=== PATIENT | female | born 1950 | race Caucasian/White ===

== ENCOUNTER → 2016-04-14 | Outpatient (CLI) | payer MEDICARE, OTHER ==
--- NOTE | 2016-04-15 11:12 | RAD ---
DATE: 04/14/16 EXAM: DIGITAL SCREEN BILAT W/CAD HISTORY: Routine screening COMPARISON: 04/12/15 This study was interpreted with the benefit of Computerized Aided Detection (CAD ). TECHNIQUE: Routine CC and MLO views of both breasts are obtained. FINDINGS: The breast tissue density is [B, scattered fibroglandular densities are seen bilaterally ] . Stable benign-appearing calcifications are present in both breasts.. There are no dominant suspicious masses, suspicious microcalcifications or evidence of architectural distortion. Skin and nipples are intact IMPRESSION: Benign findings BI-RADS CATEGORY: 2 BENIGN FINDING(S) RECOMMENDED FOLLOW-UP: One year PQRS compliance statement: Patient information was entered into a reminder system with a target due date for the next mammogram. Mammography is a sensitive method for finding small breast cancers, but it does not detect them all and is not a substitute for careful clinical examination. A negative mammogram does not negate a clinically suspicious finding and should not result in delay in biopsying a clinically suspicious abnormality. "Our facility is accredited by the [employer] Mammography Program." AMANDAD
== END | disposition home or self-care (01) ==
LOC: MAMMO 08:04
PROVIDERS: ATTEND Obstetrics & Gynecology
DX: Z12.31 Encounter for screening mammogram for malignant neoplasm of breast (principal)
CPT/HCPCS: G0202; 77067

== ENCOUNTER → 2017-04-16 | Outpatient (CLI) | payer BC | END | disposition home or self-care (01) | LOC: MAMMO 14:44 | DX: Z12.31 Encounter for screening mammogram for malignant neoplasm of breast (principal) | CPT/HCPCS: 77063; 77067 ==

== ENCOUNTER → 2018-04-28 | Outpatient (CLI) | payer BC ==
--- NOTE | 2018-04-28 10:11 | RAD ---
DATE: 04/28/2018 EXAM: MAMMO MARLI SCREENING BILATERAL HISTORY: Routine screening COMPARISON: 04/16/2017 This study was interpreted with the benefit of Computerized Aided Detection (CAD). Breast Density: SCATTERED The breast parenchyma shows scattered fibroglandular densities. Breast parenchyma level B. FINDINGS: 2-D and 3-D tomosynthesis imaging was performed in CC and MLO projections. No new or enlarging breast densities are seen. There are scattered benign type calcifications. No suspicious microcalcifications have developed. IMPRESSION: Stable mammograms without evidence of malignancy. BI-RADS CATEGORY: 2 BENIGN FINDING(S) RECOMMENDED FOLLOW-UP: 12M 12 MONTH FOLLOW-UP PQRS compliance statement: Patient information was entered into a reminder system with a target due date for the next mammogram. Mammography is a sensitive method for finding small breast cancers, but it does not detect them all and is not a substitute for careful clinical examination. A negative mammogram does not negate a clinically suspicious finding and should not result in delay in biopsying a clinically suspicious abnormality. "Our facility is accredited by the [employer] Mammography Program."
== END | disposition home or self-care (01) ==
LOC: MAMMO 08:42
PROVIDERS: ATTEND Obstetrics & Gynecology
DX: Z12.31 Encounter for screening mammogram for malignant neoplasm of breast (principal)
CPT/HCPCS: 77063; 77067

== ENCOUNTER → 2019-03-24 | Outpatient (CLI) | payer MEDICARE ==
[~2019-03-24] MED LIST: REGADENOSON 0.4 MG/5 ML DISP.SYRIN. IV ONE
--- NOTE | 2019-03-24 11:47 | RAD ---
MR#: [id number] Date of Study: 03/24/2019 Ordering Physician: DAMIEN HURTADO, Referring Physician: VERNA GRANDA Tech: JADEN Melvin, KASHIF (R) (N) APPROVED REPORT Test Type: Pharmacological Stress Nurse/Tech: Anna Torres RN Test Indications: Dyspnea Cardiac History: HTN, See EMR. Medications: ASA 81mg QD, See EMR. Medical History: See EMR. Resting ECG: SR with prolonged HI interval Resting Heart Rate: 70 bpm Resting Blood Pressure: 118/76mmHg Pretest Chest Pain: No chest pain Nurse/Tech Notes Lungs CTA, Heart tones regular. Consent: The procedure was explained to the patient in lay terms. Informed consent was witnessed. Nate eout was entered into [employer]. History and Stress Test performed by RT Rm (R) (N) Pharm. Details Pharmacologic stress testing was performed using 0.4mg per 5ml of regadenoson given intravenously ove r 7-10 seconds. Stress Symptoms Dyspnea POST EXERCISE Reason for Termination: Infusion complete Max HR: 92 bpm Max Blood Pressure: 109/57mmHg Blood Pressure response to exercise: Normal blood pressure response during stress. Heart Rate response to exercise: WNL Chest Pain: No. Arrhythmia: No. ST Change: No. INTERPRETATION Stress EKG Conclusion: Baseline EKG showed sinus rhythm. No ischemic changes at peak stress. No arr hythmias. Imaging Protocol IMAGE PROTOCOL: Rest Tc-99m/stress Tc-99m 1 day Rest: Stress: Viability: Radiopharm.Tc99m WwdxvvkfjKi79d Sestamibi Akpg25gKp 33mCi Img Date 03/24/2019 03/24/2019 Inj-Img [id number]. 60min. Rest Admin Site:IV - Right AntecubitalAdministrator:JADEN Melvin, KASHIF (R)(N) Stress Admin Site: IV - Right AntecubitalAdministrator: RT Adriana Abdalla)(N) STRESS DATA End Diast. Vol.83.0mlLVEDV index BSA38.0ml End Syst. Vol.19.0mlLVESV index BSA9.0ml Myocardial Pssp429.0gEject. Hwpmzwdm91.0% Stress Scores Regional WT0.00Summed WT7.00 Regional WM0.00Summed WM1.00 Study quality was good. Left Ventricular size was Normal at Rest and Stress. Lung uptake was . Left Ventricular ejection fraction is 74%. The rest and stress images show normal perfusion, normal contraction and thickening. LV Perf. Quant 17 Seg. SSS0.00 17 Seg. SRS0.00 17 Seg. SDS0.00 Stress Defect Extent (% LAD)0.00Rest Defect Extent (% LAD)0.00Rev. Defect Extent (% LAD)0.00 Stress Defect Extent (% LCX) 0.00Rest Defect Extent (% LCX)0.00Rev. Defect Extent (% LCX)0.00 Stress Defect Extent (% RCA)0.00Rest Defect Extent (% RCA)0.00Rev. Defect Extent (% RCA)0.00 Stress Defect Extent (% MILES)0.00Rest Defect Extent (% MILES)0.00Rev. Defect Extent (% MILES)0.00 Conclusion 1. Regadenoson cardioisotope stress test did not show any evidence of ischemia or infarct. 2. Normal left ventricular systolic function with ejection fraction calculated at 74%. 3. Low risk for cardiac events. Signed by : Chris Ray, Electronically Approved : 03/24/2019 11:46:30
== END | disposition home or self-care (01) ==
LOC: NM 07:10
PROVIDERS: ATTEND Family Medicine
DX: R06.09 Other forms of dyspnea (principal); I10 Essential (primary) hypertension
CPT/HCPCS: 78452; 93017; A9500; J2785

== ENCOUNTER → 2019-07-27 | Outpatient (CLI) | payer MEDICARE ==
--- NOTE | 2019-07-27 13:14 | RAD ---
BILATERAL SCREENING MAMMOGRAM, 3-D History: Routine screening. Comparison: 04/28/2018, 04/16/2017, 04/14/2016, 04/12/2015. Technique: MLO and CC digital tomosynthesis (3D) images obtained. Radiologist reviewed these images on dedicated workstation. Findings: Breast Tissue Density B : There are scattered areas of fibroglandular density. There are no dominant masses, suspicious microcalcifications, or architectural distortion. Scattered calcifications are stable. IMPRESSION: No mammographic evidence of malignancy. Recommend routine screening. BI-RADS category 1: Negative. The images were reviewed with computer-aided detection. Patient information is entered into reminder system with a target due date for the next screening mammogram. Mammography is the most sensitive method for finding small breast cancers, but it does not detect them all and is not a substitute for careful clinical examination. A negative mammogram does not negate a clinically suspicious finding and should not result in delay in biopsying a clinically suspicious abnormality. "Our facility is accredited by the [employer] Mammography Program." Electronically signed by: Tim Pink MD (07/27/2019 1:11 PM) [id number]
== END | disposition home or self-care (01) ==
LOC: MAMMO 07:51
PROVIDERS: ATTEND Obstetrics & Gynecology
DX: Z12.31 Encounter for screening mammogram for malignant neoplasm of breast (principal)
CPT/HCPCS: 77063; 77067

== ENCOUNTER → 2020-07-30 | Outpatient (CLI) | payer MEDICARE ==
--- NOTE | 2020-07-30 13:06 | RAD ---
PROCEDURE: MG BILAT SCREEN+MARLI HISTORY: The patient is 70 years old and is seen for Reason: / Spl. Instructions: / History: . COMPARISON: July 27, 2019 TECHNIQUE: CC and MLO views of both breasts were obtained. Images were processed by the [employer] computer-aided detection system. DENSITY: There are scattered fibroglandular densities. FINDINGS: No developing mass, suspicious calcifications or architectural distortion. Bilateral clarence ign-appearing calcific effusions, unchanged. IMPRESSION: Negative. No evidence of malignancy. Recommend annual screening mammograms per [employer] guidelines. She will be due in one year. BI-RADS category 2 Benign Patient entered into a reminder system for annual screening mammogram. Electronically signed by: Osmar Blanchard DO (07/30/2020 1:03 PM) [email or web address]
== END ==
LOC: MAMMO 11:02
PROVIDERS: ATTEND Obstetrics & Gynecology
DX: Z12.31 Encounter for screening mammogram for malignant neoplasm of breast (principal)
CPT/HCPCS: 77063; 77067

== ENCOUNTER 2020-11-06 10:12 | Observation (INO) | payer MEDICARE ==
[~2020-11-06] VITALS: Ht 180.3 cm; Wt 90.9 kg
--- NOTE | 2020-11-06 10:23 | PHYS DOC ---
Past Medical History Past Medical History: Depression, Hypertension General Adult HPI: HPI: Patient is a 70 year old female with history of HTN, depression who presents with a near syncopal episode. Was volunteering at her [employer] and was going up and down stairs when she began to feel lightheaded and fell over. She does not think that she ever fully lost consciousness. Denies any injuries from her fall. She was extremely tired and felt like she may pass out while she was on the ground. EMS arrived and stated their first blood pressure was 66/40s while she was sitting upright. They lowered her to the ground and repeat blood pressures were 115 systolic minutes later. She denies any preceding chest pain or pressure, palpitations, or shortness of breath. Has been feeling in her usual state of health. She donated platelets yesterday. She recently started venlafaxine for depression. Her only other prescription medication is valsartan/hydrochlorothiazide for HTN. Denies any history of CAD, CHF, arrhythmia. States she had a stress test last year that was reportedly reassuring. Review of Systems: Review of Systems: Constitutional: Denies fever or chills. [] Eyes: Denies change in visual acuity. [] HENT: Denies nasal congestion or sore throat. [] Respiratory: Denies cough or shortness of breath. [] Cardiovascular: Denies chest pain or edema. [] GI: Denies abdominal pain, nausea, vomiting, bloody stools or diarrhea. [] : Denies dysuria. [] Musculoskeletal: Denies back pain or joint pain. [] Integument: Denies rash. [] Neurologic: Near syncope/lightheadedness. Denies headache, focal weakness or sensory changes. [] Endocrine: Denies polyuria or polydipsia. [] Lymphatic: Denies swollen glands. [] Psychiatric: Denies depression or anxiety. [] Heart Score: C/O Chest Pain: No Risk Factors: Risk Factors: DM, Current or recent (<one month) smoker, HTN, HLP, family history of CAD, obesity. Risk Scores: Score 0 - 3: 2.5% MACE over next 6 weeks - Discharge Home Score 4 - 6: 20.3% MACE over next 6 weeks - Admit for Clinical Observation Score 7 - 10: 72.7% MACE over next 6 weeks - Early Invasive Strategies Allergies: Allergies: Allergies Coded Allergies Type Severity Reaction Last Updated Verified No Known Drug Allergies 03/24/19 No Physical Exam: PE: Constitutional: Well developed, well nourished, no acute distress, non-toxic appearance. [] HENT: Normocephalic, atraumatic, bilateral external ears normal, oropharynx moist, no oral exudates, nose normal. [] Eyes: PERRLA, EOMI, conjunctiva normal, no discharge. [] Neck: Normal range of motion, no tenderness, supple, no stridor. [] Cardiovascular:Heart rate regular rhythm, no murmur [] Lungs & Thorax: Bilateral breath sounds clear to auscultation [] Abdomen: Bowel sounds normal, soft, no tenderness, no masses, no pulsatile masses. [] Skin: abarsion on left elbow. Warm, dry, no erythema, no rash. [] Back: No tenderness, no CVA tenderness. [] Extremities: No tenderness, no cyanosis, no clubbing, ROM intact, no edema. [] Neurologic: Alert and oriented X 3, normal motor function, normal sensory function, no focal deficits noted. [] Psychologic: Affect normal, judgement normal, mood normal. [] EKG: EKG: Sinus rhythm. Rate 79. First-degree AV block, NC 232. Left bundle branch pattern. QRS 128. QTc 455. No acute ST segment changes. [] Radiology/Procedures: Radiology/Procedures: [] Course & Med Decision Making: Course & Med Decision Making Pertinent Labs and Imaging studies reviewed. (See chart for details) Patient is 70-year-old female with history HTN, depression who presents with a near syncopal episode during exertion today. Reportedly hypotensive at the scene, but normotensive with normal vitals here. Well-appearing on arrival. EKG was sinus rhythm with a left bundle branch block and a first-degree AV block, both of which are reportedly new per patient. We will check electrolytes, cell counts, troponin. Given exertional syncope and a bifascicular block feel she would be best served by admission for potential cardiac syncope. 1022 Mild hypokalemia on work-up. Unlikely contributory. P.o. replacement ordered. Echocardiogram and cardiology consultation placed. Will be admitted to the patient's PCP, Dr. Welch. 1227 Deepika Disclaimer: Deepika Disclaimer: This electronic medical record was generated, in whole or in part, using a voice recognition dictation system. Departure Departure Impression: Primary Impression: Syncope Disposition: ADMITTED INPATIENT Admitting Physician: Laron Welch Condition: STABLE Referrals: LARON WELCH MD (PCP) ALAINA HUBBARD MD Nov 06, 2020 10:23
[2020-11-06 10:38] LABS: BASO % 1 % (0-3); EOS # 0.1 x10^3/uL (0.0-0.7); EOS % 3 % (0-3); HEMATOCRIT 39.5 % (36.0-47.0); HEMOGLOBIN 13.9 g/dL (12.0-15.5); LYMPH # 1.2 x10^3/uL (1.0-4.8); LYMPH % 34 % (24-48); MEAN CORPUSCULAR HEMOGLOBIN 32 pg (25-35); MEAN CORPUSCULAR HGB CONC 35 g/dL (31-37); MEAN CORPUSCULAR VOLUME 90 fL (79-100); MONO # 0.3 x10^3/uL (0.0-1.1); MONO % 10 % (0-9); NEUT # 1.8 x10^3/uL (1.8-7.7); NEUT % 52 % (31-73); PLATELET COUNT 124 x10^3/uL (140-400); RED CELL DISTRIBUTION WIDTH 12.9 % (11.5-14.5); WHITE BLOOD COUNT 3.5 x10^3/uL (4.0-11.0)
[2020-11-06 10:50] LABS: CALCIUM 9.2 mg/dL (8.5-10.1); CREATININE 1.1 mg/dL (0.6-1.0); MAGNESIUM 1.9 mg/dL (1.8-2.4)
[2020-11-06] MEDS ORDERED: POTASSIUM CHLORIDE 20 MEQ TABLET.ER. PO ONE ×2 (11:15→16:45)
--- NOTE | 2020-11-06 12:35 | PDOC2 ---
UZMA CANTU DOPE HEATER 11/06/20 1235: CARDIAC CONSULT DATE OF CONSULT Date of Consult DATE: 11/06/20 TIME: 12:27 REASON FOR CONSULT Reason for Consult: near syncope REFERRING PHYSICIAN Referring Physician: Dr. Herrera SOURCE Source: Chart review, Patient HISTORY OF PRESENT ILLNESS HISTORY OF PRESENT ILLNESS This is a 70 yo female who presented secondary to near syncopal episode. Reports she was going up and down stairs at her [employer] and began to feel lightheaded and fell over. Could have lost consciousness, but she is unsure. Did feel tired and as though she could pass out on the ground. EMS was called. Blood pressure 66/40s while sitting upright. Does have a history of hypertension for which she takes valsartan/hydrochlorothiazide. Also donated platelets yesterday. Has been following [employer]. Has lost 14lbs in 5 weeks. She denies any recent dizziness, diaphoresis, palpitations, or chest pain. Was started on medication for depression recently. No prior h/o CAD or arrhythmias. PAST MEDICAL HISTORY Cardiovascular: HTN Psych: Depression PAST SURGICAL HISTORY Past Surgical History: No pertinent history FAMILY HISTORY Family History: Heart Disease SOCIAL HISTORY Smoke: No ALCOHOL: none Drugs: None CURRENT MEDICATIONS CURRENT MEDICATIONS Current Medications Medications (Trade) Dose Ordered Sig/Trish Route PRN Reason Start Time Stop Time Status Last Admin Dose Admin Potassium Chloride (Klor-Con) 40 meq 1X ONCE PO 11/06/20 11:15 11/06/20 11:16 DC 11/06/20 11:32 ALLERGIES ALLERGIES: Coded Allergies: No Known Drug Allergies (Unverified , 03/24/19) ROS Review of System 14 point ROS conducted with pertinent positives noted above in HPI PHYSICAL EXAM General: Alert, Oriented X3, Cooperative, No acute distress HEENT: Atraumatic Lungs: Clear to auscultation, Normal air movement Heart: Regular rate Abdomen: Soft, No tenderness Extremities: No edema, Normal pulses Skin: No significant lesion Neuro: Normal gait, Sensation intact Psych/Mental Status: Mental status NL, Mood NL MUSCULOSKELETAL: Osteoarthritic changes both hands VITALS/I&O VITALS/I&O: Vital Signs Date Time Temp Pulse Resp B/P (MAP) Pulse Ox O2 Delivery O2 Flow Rate FiO2 11/06/20 10:12 98.4 83 18 131/70 (90) 96 Room Air 98.4 LABS Lab: Laboratory Tests Test 11/06/20 10:29 White Blood Count 3.5 x10^3/uL (4.0-11.0) L Red Blood Count 4.40 x10^6/uL (3.50-5.40) Hemoglobin 13.9 g/dL (12.0-15.5) Hematocrit 39.5 % (36.0-47.0) Mean Corpuscular Volume 90 fL (79-100) Mean Corpuscular Hemoglobin 32 pg (25-35) Mean Corpuscular Hemoglobin Concent 35 g/dL (31-37) Red Cell Distribution Width 12.9 % (11.5-14.5) Platelet Count 124 x10^3/uL (140-400) L Neutrophils (%) (Auto) 52 % (31-73) Lymphocytes (%) (Auto) 34 % (24-48) Monocytes (%) (Auto) 10 % (0-9) H Eosinophils (%) (Auto) 3 % (0-3) Basophils (%) (Auto) 1 % (0-3) Neutrophils # (Auto) 1.8 x10^3/uL (1.8-7.7) Lymphocytes # (Auto) 1.2 x10^3/uL (1.0-4.8) Monocytes # (Auto) 0.3 x10^3/uL (0.0-1.1) Eosinophils # (Auto) 0.1 x10^3/uL (0.0-0.7) Basophils # (Auto) 0.0 x10^3/uL (0.0-0.2) Sodium Level 134 mmol/L (136-145) L Potassium Level 3.0 mmol/L (3.5-5.1) L Chloride Level 95 mmol/L (98-107) L Carbon Dioxide Level 30 mmol/L (21-32) Anion Gap 9 (6-14) Blood Urea Nitrogen 12 mg/dL (7-20) Creatinine 1.1 mg/dL (0.6-1.0) H Estimated GFR (Cockcroft-Gault) 49.0 Glucose Level 140 mg/dL (70-99) H Calcium Level 9.2 mg/dL (8.5-10.1) Magnesium Level 1.9 mg/dL (1.8-2.4) Troponin I Quantitative < 0.017 ng/mL (0.000-0.055) Laboratory Tests 11/06/20 10:29 Laboratory Tests 11/06/20 10:29 STRESS TEST STRESS TEST Conclusion 1. Regadenoson cardioisotope stress test did not show any evidence of ischemia or infarct. 2. Normal left ventricular systolic function with ejection fraction calculated at 74%. 3. Low risk for cardiac events. DATE: 03/24/19 1031 ASSESSMENT/PLAN ASSESSMENT/PLAN 1. Near syncope/syncopal episode. Most probably vasovagal 2. Hypokalemia; replaced 3. Hypertension; low end 4. Leukopenia 5. Depression Recommendations Orthos IVFs Hold antiHTN therapy for now Echo ordered Monitor tele overnight Could consider outpatient event monitor Supportive care JAIME ANGUIANO MD 11/06/20 1723: CARDIAC CONSULT ASSESSMENT/PLAN ASSESSMENT/PLAN Patient seen and examined She is feeling better at this time and is in sinus rhythm. I agree with our nurse practitioners assessment and plan as above. Near syncope/syncopal episode. Most probably vasovagal. Echo pending. Additionally sodium level 144 with a potassium level of 3.0. A 15 pound weight loss over the last 5 weeks using Slim for life including a probable diuretic wh ich was used this morning. Hypokalemia; replaced. Monitoring lab. Hypertension; low end. Antihypertensive medications on hold. Receiving fluids. Leukopenia Depression UZMA CANTU APRN Nov 06, 2020 12:35 JAIME ANGUIANO MD Nov 06, 2020 17:23
[2020-11-06] MEDS ORDERED: IV NORMAL SALINE 500ML BAG 500 ML IV ONE (13:45)
[2020-11-06 15:30] VITALS: BP 127/70
--- NOTE | 2020-11-06 15:36 | EKG ---
[facility] [address] [place] [address] Test Date: 2020-11-06 Test Time: 10:16:55 Pat Name: LATRELL HERNANDEZ Department: Room: Gender: F [employer] Operator: : 1950 Requested By: ALAINA HUBBARD Order Number: [id number] Reading MD: Measurements Intervals Gipsy Rate: 79 P: -24 VT: 232 QRS: 1 QRSD: 128 T: 74 QT: 396 QTc: 455 Interpretive Statements SINUS RHYTHM PROLONGED VT INTERVAL NON SPECIFIC INTRAVENTRICULAR BLOCK QRS(T) CONTOUR ABNORMALITY CONSISTENT WITH ANTEROSEPTAL INFARCT PROBABLY OLD ABNORMAL ECG RI6.01 No previous ECG available for comparison
[2020-11-06] MEDS ORDERED: FERR236T2 PO (15:40)
[2020-11-06] MEDS ORDERED: VALS1TAB28 PO (15:40)
[2020-11-06] MEDS ORDERED: ASCO500C PO (15:40)
[2020-11-06] MEDS ORDERED: VITA400T6 PO (15:40)
[2020-11-06] MEDS ORDERED: VENL37.57 PO (15:40)
[2020-11-06] MEDS ORDERED: MULT-445 PO (15:40)
[2020-11-06] MEDS ORDERED: OMEG1CAP38 PO (15:40)
[2020-11-06] MEDS ORDERED: CHOL10004 PO (15:40)
[2020-11-06] MEDS ORDERED: FLU VACC QUAD 21-22 (6MOS+) PF 0.5 ML SYRINGE. VAX IM ONE (16:00)
[2020-11-06] MEDS ORDERED: PSYL0.5215 PO (16:10)
--- NOTE | 2020-11-06 17:26 | CARD ---
MR#: [id number] Date of Study: 11/06/2020 Ordering Physician: ALAINA HUBBARD, Referring Physician: ALAINA HUBBARD, Tech: APPROVED REPORT EXAM: Two-dimensional and M-mode echocardiogram with Doppler and color Doppler. INDICATION Dyspnea 2D DIMENSIONS Left Atrium(2D)3.6 (1.6-4.0cm)IVSd1.3 (0.7-1.1cm) Aortic Root(2D)3.9 (2.0-3.7cm)LVDd4.4 (3.9-5.9cm) LVOT Diameter2.2 (1.8-2.4cm)PWd1.3 (0.7-1.1cm) LVDs2.4 (2.5-4.0cm)FS (%) 46.7 % SV69.9 mlLVEF(%)78.3 (>50%) Aortic Valve AoV Peak Alexandre.147.8cm/sAoV VTI26.6cm AO Peak GR.8.7mmHgLVOT VTI 21.19cm AO Mean GR.5mmHgAI P 1/2 [id number] Mitral Valve MV E Pdovkejs26.2cm/sMV E Peak Gr.4mmHg MV DECEL [id number] A Xzzdlsdv40.7cm/s MV E Mean Gr.1mmHgE/A Ratio0.7 TDI Lateral E' P. V7.02cm/sMedial E' P. V5.08cm/s E/Lateral E'9.1E/Medial E'12.6 Tricuspid Valve TR P. [id number]/sTR Peak Gr.22mmHg LEFT VENTRICLE The left ventricle is normal size. There is mild concentric left ventricular hypertrophy. The left ve ntricular systolic function is normal. The ejection fraction is 60%. There is normal LV segmental wal l motion. Transmitral Doppler flow pattern is Grade I-abnormal relaxation pattern. No left ventricle thrombus noted on this study. There is no ventricular septal defect visualized. There is no left vent ricular aneurysm. There is no mass noted in the left ventricle. RIGHT VENTRICLE The right ventricle is normal size. There is normal right ventricular wall thickness. The right ventr icular systolic function is normal. ATRIA The left atrium is mildly dilated. The right atrium size is normal. The interatrial septum is intact with no evidence for an atrial septal defect or patent foramen ovale as noted on 2-D or Doppler imagi ng. AORTIC VALVE The aortic valve is mildly calcified. Doppler and Color Flow revealed mild aortic regurgitation. Ther e is no significant aortic valvular stenosis. There is no aortic valvular vegetation. MITRAL VALVE The mitral valve is normal in structure and function. There is no evidence of mitral valve prolapse. There is no mitral valve stenosis. Doppler and Color Flow revealed no mitral valve regurgitation note d. TRICUSPID VALVE The tricuspid valve is normal in structure and function. Doppler and Color Flow revealed trace to mil d tricuspid regurgitation. The PA pressure was estimated at 27 mmHg. There is no tricuspid valve prol apse or vegetation. There is no tricuspid valve stenosis. PULMONIC VALVE The pulmonary valve is normal in structure and function. Doppler and Color Flow revealed no pulmonic valvular regurgitation. There is no pulmonic valvular stenosis. GREAT VESSELS The aortic root is normal in size. The ascending aorta is normal in size. The pulmonary artery is nor mal. The IVC is normal in size and collapses >50% with inspiration. PERICARDIAL EFFUSION There is no pleural effusion. There is no evidence of significant pericardial effusion. Critical Notification Critical Value: No <Conclusion> The left ventricular systolic function is normal. The ejection fraction is 60%. There is normal LV segmental wall motion. Transmitral Doppler flow pattern is Grade I-abnormal relaxation pattern. Mild aortic regurgitation. Trace to mild tricuspid regurgitation. The PA pressure was estimated at 27 mmHg. There is no evidence of significant pericardial effusion. Signed by : Chris Ray, Electronically Approved : 11/06/2020 17:25:40
[2020-11-06 19:00] VITALS: BP 123/68
[2020-11-06] MEDS: IBUPROFEN 200 MG TABLET. PO PRN (19:05)
[2020-11-06] MEDS ORDERED: VENLAFAXINE XR 37.5 MG CAP.ER.24H. PO SCH (21:00)
[2020-11-06 23:08] VITALS: BP 112/53
[2020-11-07 03:37] VITALS: BP 109/59
[2020-11-07 07:39] LABS: CALCIUM 8.6 mg/dL (8.5-10.1); CREATININE 1.1 mg/dL (0.6-1.0); MAGNESIUM 2.2 mg/dL (1.8-2.4); POTASSIUM 3.3 mmol/L (3.5-5.1)
[2020-11-07 07:45] VITALS: BP 106/62
[2020-11-07] MEDS ORDERED: POTASSIUM CHLORIDE 10 MEQ TABLET.ER. PO ONE (08:30)
--- NOTE | 2020-11-07 08:49 | PDOC ---
Provider Note Date of Service: DATE: 11/07/20 TIME: 08:49 Provider Note [id number] Justifications for Admission Other Justification DAMIEN HURTADO MD Nov 07, 2020 08:49
[2020-11-07] MEDS: IBUPROFEN 200 MG TABLET. PO PRN (08:57)
--- NOTE | 2020-11-07 08:57 | SSS ---
ADMIT DATE: 11/07/2020 HOSPITAL SUMMARY: A 70-year-old white female who has been losing weight recently with a dietary program. She had a syncopal episode while doing some exertional stair climbing to [employer] and fell down some stairs. She had no seizure-like activity or postictal behavior and no apparent injuries during the fall. CBC showed a mildly reduced platelet count of 124,000, white count of 3500. Potassium was low at 3.0, it came up to 3.3 with hydration. TSH was normal as was troponin. Echocardiogram was unremarkable with a good ejection fraction and EKG showed left axis deviation, left bundle branch block which is not new. She was monitored on the floor with some IV fluids and oral potassium supplementation and has been fine. Blood pressures are running in the range of 110-120, off of her antihypertensive medication and flu vaccine was given here. She is comfortable to be followed as an outpatient at this point. FINAL DIAGNOSIS: 1. Iatrogenic syncope secondary to drug-induced hypotension. 2. Hypokalemia secondary to medications. 3. Mild leukopenia and thrombocytopenia, etiology and duration undetermined. OPERATIONS, PROCEDURES, COMPLICATIONS: None. CONSULTATION: Dr. Campbell's group. DISPOSITION: She will hold the valsartan HCT for now and follow up as an outpatient in 1 week. We will recheck her CBC in regards to the platelets and white count, though these may be preexisting. Current weight loss program probably allows the blood pressure to be low. We will follow her as an outpatient at this point. JOSE HOLLIS: Liz TID: [id number]
--- NOTE | 2020-11-07 09:04 | PDOC ---
CARDIO Progress Notes Date and Time Date of Service 11/07/20 Time of Evaluation 1045 Subjective Subjective: No Chest Pain, No shortness of breath, No Palpitations, No Dizziness Vitals Vitals Vital Signs Date Time Temp Pulse Resp B/P (MAP) Pulse Ox O2 Delivery O2 Flow Rate FiO2 11/07/20 07:45 98.0 77 16 106/62 (77) 92 Room Air 98.0 Weight Weight [ ] Input and Output Intake and Output Intake and Output 11/07/20 07:00 Intake Total 740 ml Balance 740 ml Intake Oral 240 ml IV Total 500 ml # Voids 3 Laboratory Labs Laboratory Tests Test 11/06/20 10:29 11/07/20 05:50 White Blood Count 3.5 x10^3/uL (4.0-11.0) Red Blood Count 4.40 x10^6/uL (3.50-5.40) Hemoglobin 13.9 g/dL (12.0-15.5) Hematocrit 39.5 % (36.0-47.0) Mean Corpuscular Volume 90 fL (79-100) Mean Corpuscular Hemoglobin 32 pg (25-35) Mean Corpuscular Hemoglobin Concent 35 g/dL (31-37) Red Cell Distribution Width 12.9 % (11.5-14.5) Platelet Count 124 x10^3/uL (140-400) Neutrophils (%) (Auto) 52 % (31-73) Lymphocytes (%) (Auto) 34 % (24-48) Monocytes (%) (Auto) 10 % (0-9) Eosinophils (%) (Auto) 3 % (0-3) Basophils (%) (Auto) 1 % (0-3) Neutrophils # (Auto) 1.8 x10^3/uL (1.8-7.7) Lymphocytes # (Auto) 1.2 x10^3/uL (1.0-4.8) Monocytes # (Auto) 0.3 x10^3/uL (0.0-1.1) Eosinophils # (Auto) 0.1 x10^3/uL (0.0-0.7) Basophils # (Auto) 0.0 x10^3/uL (0.0-0.2) Sodium Level 134 mmol/L (136-145) 138 mmol/L (136-145) Potassium Level 3.0 mmol/L (3.5-5.1) 3.3 mmol/L (3.5-5.1) Chloride Level 95 mmol/L (98-107) 101 mmol/L (98-107) Carbon Dioxide Level 30 mmol/L (21-32) 33 mmol/L (21-32) Anion Gap 9 (6-14) 4 (6-14) Blood Urea Nitrogen 12 mg/dL (7-20) 11 mg/dL (7-20) Creatinine 1.1 mg/dL (0.6-1.0) 1.1 mg/dL (0.6-1.0) Estimated GFR (Cockcroft-Gault) 49.0 49.0 Glucose Level 140 mg/dL (70-99) 91 mg/dL (70-99) Calcium Level 9.2 mg/dL (8.5-10.1) 8.6 mg/dL (8.5-10.1) Magnesium Level 1.9 mg/dL (1.8-2.4) 2.2 mg/dL (1.8-2.4) Troponin I Quantitative < 0.017 ng/mL (0.000-0.055) Thyroid Stimulating Hormone (TSH) 1.230 uIU/mL (0.358-3.74) Physical Exam HEENT: Neck Supple W Full Motion Chest: Symmetric LUNGS: Clear to Auscultation Abdomen: Soft N/T Extremities: No Edema Neurology: alert, oriented, follow commands Assessment Assessment 1. Near syncope/syncopal episode. Most probably vasovagal. Recent 14# weight loss with [employer]. Echo with preserved LV systolic function, mild aortic regurg. No acute events on tele. No significant orthostasis noted 2. Hypokalemia; replaced 3. Hypertension; low end without therapy. 4. Leukopenia 5. Depression; venlafaxine recently initiated Recommendations No antiHTN therapy Home blood pressure monitoring Could consider outpatient event monitor if symptoms recurrent Supportive care Okay to discharge from a CV standpoint Justicifation of Admission Dx: Justifications for Admission: Justification of Admission Dx: Yes Comments: syncope hypotension UZMA CANTU APRN Nov 07, 2020 09:04
--- NOTE | 2020-11-07 11:06 | NUR ---
SW following. Discussed with RN, pt from home, room air, regular diet. Discharge order for home with self care. RN advised no SW needs.
[2020-11-07 11:50] VITALS: BP 122/78
--- NOTE | 2020-11-07 12:00 | NUR ---
Discharge Note: LATRELL HERNANDEZ Discharge instructions and discharge home medications reviewed with Patient and a copy given. All questions have been answered and understanding verbalized. The following instructions and handouts were given: Follow up with Dr. Welch in 1 week. Discontinued IV line and telemetry. Patient discharged to Home with Self-care.
== END 2020-11-07 12:10 | disposition home or self-care (01) ==
LOC: ER 10:12 → ED HOLD 12:06 → 5 NORTH 13:26
PROVIDERS: ADMIT Family Medicine; ATTEND Family Medicine
DX: I95.2 Hypotension due to drugs (principal); R55 Syncope and collapse; E87.6 Hypokalemia; D69.6 Thrombocytopenia, unspecified; Z20.822 Contact with and (suspected) exposure to COVID-19; D72.819 Decreased white blood cell count, unspecified; F32.9 Major depressive disorder, single episode, unspecified; I10 Essential (primary) hypertension; Z79.899 Other long term (current) drug therapy; Z79.01 Long term (current) use of anticoagulants; Z23 Encounter for immunization
CPT/HCPCS: 36415; 80048; 83735; 84443; 84484; 85025; 90471; 90686; 93005; 93306; 99285; G0378; J7040; G0379